=== PATIENT | male | born 1950 | race Caucasian/White ===

== ENCOUNTER 2016-08-02 03:57 | Emergency (ER) | payer BC ==
[2011-11-15 07:44] VITALS: BMI 26.0
[2016-08-02 04:33] LABS: BASOPHILS 0.3 % (0.0-2.0); EOSINOPHILS 2.6 % (0-7); HEMATOCRIT 41.1 % (42.0-54.0); HEMOGLOBIN 13.7 g/dL (13.5-17.5); IMMATURE GRANULOCYTES 0.4 % (0-5); MCH 30.9 pg (26.0-34.0); MCHC 33.3 g/dL (31.0-37.0); MCV 92.8 fL (80.0-100.0); MEAN PLATELET VOLUME 9.1 fL (7.4-10.4); MONOCYTES 9.5 % (2-11); NEUTROPHILS 52.2 % (40-80); PLATELET COUNT 261 10x3/uL (130-400); RBC 4.43 10x6/uL (4.20-6.10); RDW 12.7 % (11.5-14.5); WBC 7.6 10x3/uL (4.8-10.8)
[2016-08-02 04:51] LABS: ALBUMIN 3.3 g/dL (3.4-5.0); ALKALINE PHOSPHATASE 86 U/L (46-116); ALT (SGPT) 18 U/L (10-68); BILIRUBIN - TOTAL 0.25 mg/dL (0.2-1.3); CALC OSMOLALITY 281 mosm/kg (275-300); CALCIUM 8.7 mg/dL (8.5-10.1); CARBON DIOXIDE 27.8 mmol/L (21.0-32.0); CHLORIDE - SERUM 105 mmol/L (98-107); GLUCOSE 118 mg/dL (74-106); POTASSIUM - SERUM 4.4 mmol/L (3.5-5.1); PROTEIN - SERUM 6.4 g/dL (6.4-8.2); SODIUM 139 mmol/L (136-145); UREA NITROGEN 21 mg/dL (7-18); eGFR NON AFRICAN AMERICAN 80 mL/min (90-120)
[2016-08-02 05:00] LABS: CHOL - HDL RATIO 4.9 ratio (2.3-4.9); CHOLESTEROL, TOTAL 176 mg/dL (0-200); CKMB 0.7 U/L (0.0-3.6); CREATINE KINASE 52 UL (21-232); HDL CHOLESTEROL 36 mg/dL (32-96); LDL CHOLESTEROL 99 mg/dL (0-100); LDL-HDL RATIO 2.8 ratio (1.5-3.5); TRIGLYCERIDE 207 mg/dL (30-200)
[2016-08-02 05:02] LABS: TROPONIN-I < 0.017 ng/mL (0.000-0.060)
[2016-09-12 12:00] VITALS: BMI 25.8
== END 2016-08-02 05:35 | disposition home or self-care (01) ==
LOC: D.ER 03:57
PROVIDERS: Emergency Medicine
DX: I10 Essential (primary) hypertension (principal); F17.200 Nicotine dependence, unspecified, uncomplicated; R00.1 Bradycardia, unspecified

== ENCOUNTER → 2016-08-05 08:23 | Outpatient (CLI) | payer BC ==
[2011-11-15 07:44] VITALS: BMI 26.0
[~2016-08-05 08:23] MED LIST: ASPIRIN81 MG PO; BENICAR HCT 20-1 TA1 PO; NORVASC5 MG PO; PLAVIX75 MG PO; SYMBICORT 16010.2 GM INH
== END | disposition home or self-care (01) ==
LOC: D.RT 08:23
DX: R06.02 Shortness of breath (principal)

== ENCOUNTER 2016-09-12 08:35 | Outpatient (CLI) | payer BC ==
[~2016-09-12] VITALS: Ht 167.6 cm; Wt 72.7 kg
--- NOTE | ~2016-09-12 | HEMODYNAMI ---
PATIENT:DANILO WU MEDICAL RECORD: [id number] : 54 LOCATION:[facility] [address] [facility]# [id number] ADMISSION DATE: 09/12/16 Generatedon:09/13/201611:27 Patient name: DANILO WU Patient #: [id number] : 1950 Date of study: 09/13/2016 Page: Of Hemodynamic Procedure Report Patient Data Patient Demographics Procedure consent was obtained First Name: DANILO Gender: Male Last Name: BRYCE : 1950 Middle Initial: T Age: 65 year(s) Patient #: [id number] Race: Unknown SSN: [id number] Additional ID: [id number] Contact details Address: [address] [place] [address] ROAD State: [place] City: [place] Zip code: [address] Past Medical History Allergies: No known allergies Admission Admission Data Admission Date: 09/12/2016 Admission Time: 8:35 Arrival Date: 09/12/2016 Arrival Time: 0:00 Admit Source: Other Insurance Payor: Private Room #: [id number] health insurance Height (in.): 68 BSA: 1.87 (m2) Height (cm.): 172.72 BMI: 24.78 (kg/m2) Weight (lbs.): 163 Weight (kg.): 73.94 Lab Results Lab Result Date: 09/12/2016 Lab Result Time: 0:00 Biochemistry Name Units Result Min Max BUN mg/dl 21 --(----)-* 7 18 Creatinine mg/dl 1 --(--*-)-- 0.6 1.3 CBC Name Units Result Min Max Hemoglobin g/dl 13.9 --(*---)-- 13.5 17.5 Procedure Procedure Types Cath Procedure PCI Procedure Coronary Stent Initial Miscellaneous Procedures Moderate Sedation up to 30 minutes Procedure Description Procedure Date Procedure Date: 09/13/2016 Procedure Start Time: 11:12 Procedure End Time: 11:24 Procedure Staff Name Function Nael Pryor MD Performing Physician Francesca Vazquez RT Scrub Syd Scott RN Nurse Adolfo Bernardo RT Monitor Procedure Data Cath Procedure Fluoroscopy Diagnostic fluoroscopy Total fluoroscopy Time: 3.7 time: 3.7 min min Diagnostic fluoroscopy Total fluoroscopy dose: 291 dose: 291 mGy mGy Contrast Material Contrast Material Type Amount (ml) Isovue 300 49 Entry Location Entry Primary Successful Side Size Upsize Upsize Entry Closure Succes sful Closure Location (Fr) 1 (Fr) 2 (Fr) Remarks Device Remarks Femoral Right 6 Fr Exoseal artery Short Estimated blood loss: 10 ml Procedure Complications No complications Procedure Medications Medication Administration Route Dosage Oxygen NC 2 l/min Heparin Flush Bag added to field 2 bags (1000units/500ml NS) 0.9% NaCl I.V. 100 ml/hr Fentanyl I.V. 50 mcg Versed I.V. 1 mg Fentanyl I.V. 50 mcg Versed I.V. 1 mg Heparin Bolus I.V. 4000 units Hemodynamics Rest BSA: 1.87 (m2) HGB: 13.9 (g/dl) O2 Consumption: Estimated: 206.76 (ml/min) O2 Co nsumption indexed: Estimated:110.57 (ml/min/m) Heart Rate: 53 (bpm) Snapshots Pre Cath Intra NCS Post Cath Vital Signs Time Heart Resp SPO2 NIBP (mmHg) Rhythm Pain Sedation Rate (ipm) (%) Status Level (bpm) 10:58:50 47 17 98 142/73(108) NSR 0 (11) 10(A) , No pain 11:03:49 52 17 99 138/67(111) NSR 0 (11) 10(A) , No pain 11:08:05 46 17 98 148/63(137) NSR 0 (11) 10(A) , No pain 11:12:25 47 18 97 120/60(86) NSR 0 (11) 9(A) , No pain 11:16:33 52 17 98 117/65(85) NSR 0 (11) 9(A) , No pain 11:20:43 59 19 98 121/61(82) NSR 0 (11) 9(A) , No pain 11:24:53 59 19 98 118/64(84) NSR 0 (11) 9(A) , No pain 11:26:35 63 18 98 113/59(91) NSR 0 (11) 9(A) , No pain Medications Time Medication Route Dose Verified Delivered Reason Notes Effectiveness by by 11:05:36 Oxygen NC 2 Syd Syd Per physician l/min Tyler Scott RN RN 11:05:47 Heparin Flush added 2 Syd Syd used for Bag to bags Tyler Scott RN procedure (1000units/500ml field RN NS) 11:05:57 0.9% NaCl I.V. 100 Syd Syd Per physician ml/hr Tyler Scott RN RN 11:06:05 Fentanyl I.V. 50 Syd Syd for sedation mcg Tyler Scott RN RN 11:06:12 Versed I.V. 1 mg Syd Syd for sedation Tyler Scott RN RN 11:10:39 Fentanyl I.V. 50 Syd Syd for sedation mcg Tyler Scott RN RN 11:10:43 Versed I.V. 1 mg Syd Syd for sedation Tyler Scott RN RN 11:15:54 Heparin Bolus I.V. 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 Start room use. 10:42:18 Time tracking: Regular hours 10:42:22 Plan of Care:Hemodynamics will remain stable., Cardiac rhythm will remain stable., Comfort level will be maintained., Respiratory function will remain adequate., Patient/ family verbilizes understanding of procedure., Procedure tolerated without complication., Recovers from procedure without complications.. 10:52:28 Patient received from PCU to [facility] 2 Alert and oriented. Tansferred to table in Supine position. 10:52:29 Warm blankets applied, and arline hugger turned on for patient comfort. 10:52:29 Correct patient and procedure confirmed by team. 10:52:30 ECG and BP/O2 sat monitors applied to patient. 10:52:31 Signed procedure consent form obtained from patient. 10:57:36 Vital chart was started 10:59:46 Baseline sample Acquired. 10:59:54 Rhythm: sinus rhythm 11:00:27 H&P Date Dictated: 08/22/2016 Within 30 days and on chart.. 11:00:28 Pre-procedure instructions explained to patient. 11:00:28 Pre-op teaching completed and patient verbalized understanding. 11:00:31 Family in patients room. 11:00:32 Patient NPO since Midnight. 11:00:39 Patient allergic to No known allergies 11:00:40 Is the patient allergic to Iodine/contrast media? No. 11:00:41 Is patient on blood thinner?Yes 11:00:44 ACC The patient was administered the following blood thiners within the last 24 hours: ACCPlavix 11:00:47 Patient diabetic? No. 11:00:52 Previous problem with sedation/anesthesia? No ? 11:00:53 Snore? Yes 11:00:55 Sleep apnea? No 11:00:55 Deviated septum? No 11::00 Opens mouth fully? Yes 11:01:01 Sticks out tongue? Yes 11:01:04 Airway obstruction? Yes asthma 11:01:11 Dentures? Yes in tight 11:01:14 Pre procedure: right dorsailis pedis pulse 2+ Normal; easily identifiable; not easily obliterated 11:01:15 Patient pain scale 0/10 ?. 11:01:22 IV patent on arrival in left hand with 0.9% NaCl at [facility]. 11:01:30 Lab results completed and on chart. 11:01:32 Right groin area was prepped with chlora-prep and draped in sterile fashion 11:01:32 Alarms reviewed by R. N. 11:01:33 Sharps counted by scrub and verified by R.N. 11:01:35 Use device set Femoral PCI 11:01:36 Tegaderm 4 x 4 opened to sterile field. 11:01:37 Acist Manifold opened to sterile field. 11:01:38 Acist Syringe opened to sterile field. 11:01:38 Acist Hand Control opened to sterile field. 11:01:39 Bag Decanter opened to sterile field. 11:01:39 Medline Cath Pack opened to sterile field. 11:01:40 Terumo 6Fr [place] Sheath opened to sterile field. 11:01:40 St Mohsen 260cm J .035 wire opened to sterile field. 11:01:41 Merit BasixCompak Inflation Kit opened to sterile field. 11:01:55 Talley Whisper J 300cm 0.014 guide wire opened to sterile field. 11:04:32 Physician arrived 11::33 --------ALL STOP TIME OUT------ 11::33 Final Timeout: patient, procedure, and site verified with staff and physician. All members of the team are in agreement. 11:04:35 Right groin site verified by team. 11:04:37 Physical assessment completed. ASA score P 2 - A patient with mild systemic disease as per Nael Pryor MD. 11:04:40 Sedation plan: IV Moderate Sedation Versed, Fentanyl 11:05:36 Oxygen 2 l/min NC was administered by Syd Scott RN; Per physician; 11:05:47 Heparin Flush Bag (1000units/500ml NS) 2 bags added to field was administered by Syd Scott RN; used for procedure; 11:05:57 0.9% NaCl 100 ml/hr I.V. was administered by Syd Scott RN; Per physician; 11:06:05 Fentanyl 50 mcg I.V. was administered by Syd Scott RN; for sedation; 11:06:12 Versed 1 mg I.V. was administered by Syd Scott RN; for sedation; 11:08:03 Cordis 6FR XBLAD 3.5 guide catheter opened to sterile field. 11:10:39 Fentanyl 50 mcg I.V. was administered by Syd Scott RN; for sedation; 11:10:43 Versed 1 mg I.V. was administered by Syd Scott RN; for sedation; 11:11:39 Zero performed for pressure channel P1 11:12:51 Procedure started. 11:12:51 Full Disclosure recording started 11:12:55 Local anesthetic to right femoral artery with Lidocaine 2% by Nael Pryor MD.INITIAL ACCESS ONLY 11:13:06 A 6 Fr Short sheath was inserted into the Right Femoral artery 11:14:04 6 Fr xblad 3.5 guide catheter was inserted over the wire 11:15:54 Heparin Bolus 4000 units I.V. was administered by Syd Scott RN; for anticoagulation; 11:18:58 [place] Sci Choice PT Extra Support J 300cm .014 gu opened to sterile field. 11:19:01 PT extra support wire advanced. 11:19:20 Wire advanced across lesion. 11:20:19 Inflation Number: 1 A Medtronic Integrity 2.75 X 26 stent was prepped and advanced across the Mid LAD. The stent was deployed at 11 SANAZ for 0:10 (min:sec). 11:20:43 Stent catheter was removed intact over wire. 11:22:25 Inflation Number: 2 A Medtronic Integrity 3.0 X 15 stent was prepped and advanced across the Mid LAD. The stent was deployed at 11 SANAZ for 0:10 (min:sec). 11:23:16 Cordis 6Fr Exoseal opened to sterile field. 11:23:19 Stent catheter was removed intact over wire. 11:23:19 Wire removed. 11:23:20 Guide catheter removed. 11:23:26 Sheath removed intact; hemostasis achieved with Exoseal to the Right Femoral artery. 11:23:28 Procedure ended.(Physican Out) 11:23:37 Fluoroscopy time 03.70 minutes. 11:23:41 Flurop Dose total: 291 11:23:41 Fluoroscopy dose: 291 mGy 11:23:44 Contrast amount:Isovue 300 49ml. 11:23:46 Sharps counted by scrub and verified by R.N. 11:23:47 Insertion/operative site no bleeding no hematoma. 11:23:50 Post-op/insertion site Right Femoral artery dressed using a 4 x 4 and Tegaderm. 11:23:52 Post right femoral artery:stable, unchanged 11:23:54 Post Procedure Pulses reassessed and unchanged 11:23:56 Post-procedure physical assessment completed. ASA score P 2 - A patient with mild systemic disease as per Nael Pryor MD. 11:23:58 Post procedure rhythm: unchanged. 11:24:00 Estimated blood loss: 10 ml 11:24:01 Post procedure instruction explained to patient.Patient verbalizes understanding. 11:24:01 Patient needs reinforcement of post procedure teaching. 11:24:16 Procedure type changed to Cath procedure, PCI procedure, Coronary Stent Initial, Miscellaneous Procedures, Moderate Sedation up to 30 minutes 11:24:44 Procedure and supply charges have been captured, reviewed, submitted and are correct. 11:24:47 Procedure Complication : No complications 11:24:49 Vital chart was stopped 11:24:49 See physician's report for complete and final results. 11:24:51 Report given to PCU. 11:24:55 Patient transfered to PCU with Stretcher. 11:24:57 Procedure ended. 11:24:57 Full Disclosure recording stopped 11:25:15 End room use (Document Last) Intervention Summary Intervention Notes Time ActionType Lesion and Equipment Action# Pressure Duration Attributes Used 11:20:19 Place stent Mid LAD Medtronic 1 11 00:10 Integrity 2.75 X 26 stent 11:22:25 Place stent Mid LAD Medtronic 2 11 00:10 Integrity 3.0 X 15 stent Device Usage Item Name Manufacture Quantity Catalog Number Hospital Part Current Minim al Lot# / Charge Number Stock Stock Serial# Code Tegaderm 4 3M 1 [id number] [id number] [id number] 5 x 4 Acist Acist 1 36299 158477 797568 184681 5 Manifold Medical Systems Inc Acist Acist 1 52694 796987 802999 673653 20 Syringe Medical Systems Inc Acist Hand Acist 1 86558 190831 119463 290689 5 Ember[employer] Inc. Medical Systems K2 Energy Bag Microtek 1 2002S 745624 19399 556235 5 [employer]. Medline Cardinal 1 [id number] 919665 11674 952088 5 10X10 Room Terumo 6Fr Terumo 1 [id number] 863522 711034 800782 [address] Mohsen 1 039178 086304 247068 363951 30 260cm J .035 wire Merit Merit 1 [id number] 581646 735599 936260 15 BasixCompak Medical Inflation Kit Talley Talley 1 [id number] 483192 068621 248054 5 Whisper J Vascular 300cm 0.014 guide wire Cordis 6FR Cardinal 1 [id number] 484309 105326 183340 10 XBLAD 3.5 Health guide catheter [place] Sci [place] 1 [id number] 997078 898392 638893 5 Choice PT Scientific Extra Support J 300cm .014 gu Medtronic Medtronic 1 [id number] 053725 482154 805492 7 [id number] Integrity 2.75 X 26 stent Medtronic Medtronic 1 [id number] 936041 798250 621487 3 [id number] Integrity 3.0 X 15 stent Cordis 6Fr Cardinal 1 [id number] 732705 575177 023028 10 GID Group Signature Audit [place] Stage Time Signature Unsigned Intra-Procedure 09/13/2016 Adolfo Bernardo 11:27:12 AM RT(R) Signatures Monitor : Adolfo Bernardo RT Signature : Date : Time : [place] [id number] [facility] [place] [address]
--- NOTE | ~2016-09-12 | HEMODYNAMI ---
PATIENT:DANILO WU MEDICAL RECORD: [id number] : 54 LOCATION:DBC ADMISSION DATE: 09/12/16 Generatedon:09/12/201610:44 Patient name: DANILO WU Patient #: [id number] : 1950 Date of study: 09/12/2016 Page: Of Hemodynamic Procedure Report Patient Data Patient Demographics Procedure consent was obtained First Name: DANILO Gender: Male Last Name: BRYCE : 1950 Middle Initial: T Age: 65 year(s) Patient #: [id number] Race: Unknown SSN: [id number] Additional ID: [id number] Contact details Address: [address] [place] [address] ROAD State: [place] City: [place] Zip code: [address] Past Medical History Allergies: No known allergies Admission Admission Data Admission Date: 09/12/2016 Admission Time: 8:35 Arrival Date: 09/12/2016 Arrival Time: 0:00 Admit Source: Other Insurance Payor: Private health insurance Height (in.): 68 BSA: 1.87 (m2) Height (cm.): 172.72 BMI: 24.78 (kg/m2) Weight (lbs.): 163 Weight (kg.): 73.94 Lab Results Lab Result Date: 09/12/2016 Lab Result Time: 0:00 Biochemistry Name Units Result Min Max BUN mg/dl 21 --(----)-* 7 18 Creatinine mg/dl 1 --(--*-)-- 0.6 1.3 CBC Name Units Result Min Max Hemoglobin g/dl 13.9 --(*---)-- 13.5 17.5 Procedure Procedure Types Cath Procedure Diagnostic Procedure LHC LH w/Coronaries PCI Procedure Coronary Stent Initial Miscellaneous Procedures Moderate Sedation up to 15 minutes Procedure Description Procedure Date Procedure Date: 09/12/2016 Procedure Start Time: 10:26 Procedure Staff Name Function Marian BANUELOS Scrub Jean Coleman RN Nurse Nael Pryor MD Performing Physician Kacy Granger RT Monitor Procedure Data Cath Procedure Fluoroscopy Diagnostic fluoroscopy Total fluoroscopy Time: 3.3 time: 3.3 min min Diagnostic fluoroscopy Total fluoroscopy dose: 345 dose: 345 mGy mGy Contrast Material Contrast Material Type Amount (ml) Isovue 300 80 Entry Location Entry Primary Successful Side Size Upsize Upsize Entry Closure Coats ccessful Closure Location (Fr) 1 (Fr) 2 (Fr) Remarks Device Remarks Radial Right 6 Fr Mechanical tr artery Short Compression Estimated blood loss: 10 ml Diagnostic catheters Device Type Used For End Catheter Placement Terumo 5Fr Houston 110cm Procedure catheter Procedure Complications No complications Procedure Medications Medication Administration Route Dosage Oxygen NC 2 l/min Lidocaine 2% added to field 20 Heparin Flush Bag added to field 2 bags (1000units/500ml NS) 0.9% NaCl I.V. 100 ml/hr Versed I.V. 1 mg Fentanyl I.V. 50 mcg Radial Cocktail I.A. 1 syringe (Verapomil 2mg/Nitro 400mcg/Heparin 1500units) Heparin Bolus I.V. 4000 units Versed I.V. 0.5 mg Fentanyl I.V. 25 mcg Hemodynamics Rest BSA: 1.87 (m2) HGB: 13.9 (g/dl) O2 Consumption: Estimated: 203.23 (ml/min) O2 Co nsumption indexed: Estimated:108.68 (ml/min/m) Heart Rate: 48 (bpm) Snapshots Pre Cath Intra NCS Post Cath Vital Signs Time Heart Resp SPO2 etCO2 [id number] NIBP Rhythm Pain Sedation Rate (ipm) (%) (mmHg) (mmHg) (mmHg) Status Level (bpm) 10:06:11 56 16 98 0 0 133/68(99) SB 0 (11) 10(A) , No pain 10:10:34 53 17 99 0 0 147/45(57) SB 0 (11) 10(A) , No pain 10:15:43 51 16 100 0 0 137/64(89) SB 0 (11) 10(A) , No pain 10:21:02 47 20 100 0 0 128/67(95) SB 0 (11) 10(A) , No pain 10:25:14 58 16 98 0 0 119/68(93) SB 0 (11) 10(A) , No pain 10:29:24 66 16 98 0 0 106/63(76) NSR 0 (11) 9(A) , No pain 10:33:32 64 16 98 0 0 117/58(88) NSR 0 (11) 9(A) , No pain 10:37:44 64 15 98 0 0 111/55(80) NSR 0 (11) 9(A) , No pain Medications Time Medication Route Dose Verified Delivered Reason Note s Effectiveness by by 10:03:52 Oxygen NC 2 l/min Nael Buffie used for Konstantin Coleman RN procedure 10:03:58 Lidocaine 2% added 20ml Naeljonatan Nayak for local to vial Konstantin Pryor MD anesthetic field 10:04:04 Heparin Flush added 2 bags Nael Nayak used for Bag to Konstantin Pryor MD procedure (1000units/500ml field NS) 10:04:12 0.9% NaCl I.V. 100 Nael Pena Per physician ml/hr Konstantin Coleman RN 10:26:03 Versed I.V. 1 mg Nael Pena for sedation Konstantin Coleamn RN 10:26:08 Fentanyl I.V. 50 mcg Nael Pena for sedation Konstantin Coleman RN 10:28:05 Radial Cocktail I.A. 1 Nael Nayak for (Verapomil syringe Konstantin Pryor MD vasodilation 2mg/Nitro 400mcg/Hepari 10:30:53 Heparin Bolus I.V. 4000 Nael Pena for units Konstantin Cloeman RN anticoagulation 10:32:13 Versed I.V. 0.5 mg Nael Pena for sedation Konstantin Coleman RN 10:32:18 Fentanyl I.V. 25 mcg Nael Pena for sedation Konstantin Coleman RN Procedure Log Time Note 9:54:26 Patient Height : 68 cm 9:54:31 Patient Weight : 163 kg 9:54:32 Admit Source: Other 9:54:33 Insurance Payor : Private health insurance 9:54:36 Arrival Date: 09/12/2016 12:00:00 AM 9:55:03 Procedure type changed to Cath procedure, Diagnostic procedure, LHC, LHC w/Coronaries, PCI procedure, Coronary Stent Initial, Miscellaneous Procedures, Moderate Sedation up to 15 minutes 9:55:06 Diagnostic Cath Status : Elective 9:55:43 Jean Coleman RN sent for patient. Start room use. 9:55:44 Time tracking: Regular hours 9:55:50 Plan of Care:Hemodynamics will remain stable., Cardiac rhythm will remain stable., Comfort level will be maintained., Respiratory function will remain adequate., Patient/ family verbilizes understanding of procedure., Procedure tolerated without complication., Recovers from procedure without complications.. 10:03:52 Oxygen 2 l/min NC was administered by Jean Coleman RN; used for procedure; 10:03:58 Lidocaine 2% 20ml vial added to field was administered by Nael Pryor MD; for local anesthetic; 10:04:04 Heparin Flush Bag (1000units/500ml NS) 2 bags added to field was administered by Nael Pryor MD; used for procedure; 10:04:12 0.9% NaCl 100 ml/hr I.V. was administered by Jean Coleman RN; Per physician; 10:04:54 Vital chart was started 10:05:35 Patient received from Pre/Post Procedure Room to CCL 1 Alert and oriented. Tansferred to table in Supine position. 10:05:36 Correct patient and procedure confirmed by team. 10:05:36 Warm blankets applied, and arline hugger turned on for patient comfort. 10:05:39 Signed procedure consent form obtained from patient. 10:05:40 ECG and BP/O2 sat monitors applied to patient. 10:05:41 Baseline sample Acquired. 10:05:45 Rhythm: sinus rhythm 10:05:47 Full Disclosure recording started 10:05:59 H&P Date Dictated: 08/22/2016 Within 30 days and on chart., H&P Addendum completed by physician on day of procedure. (MUST COMPLETE FOR ALL OUTPATIENTS). 10:06:01 Pre-procedure instructions explained to patient. 10:06:04 Family in waiting room. 10:06:05 Patient NPO since Midnight. 10:06:59 Patient allergic to No known allergies 10:07:03 Is the patient allergic to Iodine/contrast media? No. 10:07:07 Is patient on blood thinner?Yes 10:07:12 ACC The patient was administered the following blood thiners within the last 24 hours: ACCPlavix 10:07:20 Patient diabetic? No. 10:07:27 Snore? Yes 10:07:29 Sleep apnea? No 10:07:39 Patient pain scale 0/10 ?. 10:07:47 IV patent on arrival in left hand with 0.9% NaCl at [facility]. 10:08:20 Right Radial & Right Groin area was prepped with chlora-prep and draped in sterile fashion 10:08:21 Alarms reviewed by R. N. 10:08:22 Sharps counted by scrub and verified by R.N. 10:08:23 Physician paged 10:12:12 Lab Result : Hemoglobin 13.9 g/dl 10:12:12 Lab Result : Creatinine 1 mg/dl 10:12:12 Lab Result : BUN 21 mg/dl 10:17:59 Zero performed for pressure channel P1 10:18:05 Zero performed for pressure channel P1 10:18:22 Lab results completed and on chart. 10:22:40 Physician arrived 10:25:54 Final Timeout: patient, procedure, and site verified with staff and physician. All members of the team are in agreement. 10:25:54 --------ALL STOP TIME OUT------ 10:25:56 Right Radial & Right Groin site verified by team. 10:26:00 Physical assessment completed. ASA score P 2 - A patient with mild systemic disease as per Nael Pryor MD. 10:26:03 Versed 1 mg I.V. was administered by Jean Coleman RN; for sedation; 10:26:08 Fentanyl 50 mcg I.V. was administered by Jean Coleman RN; for sedation; 10:26:48 Procedure started. 10:26:59 Local anesthetic to right radial artery with Lidocaine 2% by Nael Pryor MD.INITIAL ACCESS ONLY 10:27:06 Bag Decanter opened to sterile field. 10:27:06 Acist Syringe opened to sterile field. 10:27:07 Medline Cath Pack opened to sterile field. 10:27:29 Use device set Radial Dx 10:27:46 Terumo 6Fr Slender Glidesheath opened to sterile field. 10:27:48 St Mohsen 260cm J .035 wire opened to sterile field. 10:27:52 Acist Hand Control opened to sterile field. 10:27:53 Tegaderm 4 x 4 opened to sterile field. 10:27:53 Acist Manifold opened to sterile field. 10:27:54 MBrace Wrist Support opened to sterile field. 10:28:05 Radial Cocktail (Verapomil 2mg/Nitro 400mcg/Heparin 1500units) 1 syringe I.A. was administered by Nael Pryor MD; for vasodilation; 10:28:29 A Terumo 5Fr [place] 110cm catheter was advanced over the wire and used for Procedure. 10:28:47 A 6 Fr Short sheath was inserted into the Right Radial artery 10:29:04 J wire advanced. 10::54 LV gram done using AGRAWAL 10:30:11 EF : 55 % 10:30:19 LCA angiography performed. 10:30:53 Heparin Bolus 4000 units I.V. was administered by Jean Coleman RN; for anticoagulation; 10:32:09 RCA angiography performed. 10:32:13 Versed 0.5 mg I.V. was administered by Jean Coleman RN; for sedation; 10:32:16 Catheter removed. 10:32:18 Fentanyl 25 mcg I.V. was administered by Jean Coleman RN; for sedation; 10:32:19 Tagged BasixCompak Inflation Kit opened to sterile field. 10:32:20 Talley Whisper J 300cm 0.014 guide wire opened to sterile field. 10:33:07 Medtronic Launcher 6Fr AR 2.0 guide catheter opened to sterile field. 10:33:48 Proceeding to intervention. 10:34:23 6 Fr AR 2 guide catheter was inserted over the wire 10:34:27 whis wire advanced. 10:35:02 Inflation Number: 1 A Medtronic Integrity 3.0 X 18 stent was prepped and advanced across the Mid RCA. The stent was deployed at 13 SANAZ for 0:10 (min:sec). 10:35:59 Terumo TR Band Standard opened to sterile field. 10:36:34 Stent catheter was removed intact over wire. 10:36:35 Wire removed. 10:36:36 Guide catheter removed. 10:36:57 Sheath removed intact; hemostasis achieved with Mechanical Compression to the Right Radial artery. 10:37:00 Procedure ended.(Physican Out) 10:37:17 Fluoroscopy time 03.30 minutes. 10:37:31 Fluoroscopy dose: 345 mGy 10:37:31 Flurop Dose total: 345 10:37:36 Contrast amount:Isovue 300 80ml. 10:37:38 Sharps counted by scrub and verified by R.N. 10:37:41 TR band inflated with 10cc of air. 10:37:44 Insertion/operative site no bleeding no hematoma. 10:37:46 Post Procedure Pulses reassessed and unchanged 10:37:51 Estimated blood loss: 10 ml 10:37:54 Post procedure instruction explained to patient.Patient verbalizes understanding. 10:38:03 Procedure and supply charges have been captured, reviewed, submitted and are correct. 10:39:11 Full Disclosure recording stopped 10:40:18 Procedure Complication : No complications 10:40:25 See physician's report for complete and final results. 10:40:32 Report given to Med II. 10:40:39 Patient transfered to Med II with Bed. 10:40:45 End room use (Document Last) Intervention Summary Intervention Notes Time ActionType Lesion and Equipment Action# Pressure Duration Attributes Used 10:35:02 Place stent Mid RCA Medtronic 1 13 00:10 Integrity 3.0 X 18 stent Device Usage Item Name Manufacture Quantity Catalog Hospital Part Current Minimal Lot# / Number Charge Number Stock Stock Serial# Code Acist Acist 1 24581 675228 035107 862342 20 Syringe Medical Systems Inc Bag Microtek 1 2002S 670372 50155 363705 5 Decanter Medical Inc. Medline Cardinal 1 [id number] 754756 83811 218861 5 Academic Earth Terumo 6Fr Terumo 1 [id number] 743490 127297 172406 [address] St Mohsen 1 380302 015148 198651 926562 30 260cm J .035 wire Acist Hand Acist 1 64597 119579 576561 045325 5 Control Medical Systems Inc Acist Acist 1 40376 428342 664476 070189 5 Manifold Medical Systems Inc Tegaderm 4 3M 1 1626W 882569 737244 391189 5 x 4 MBrace Advanced 1 140-0250-00 739221 30394 949869 5 Wrist Vascular Support Dynamics Terumo 5Fr Terumo 1 45-0986 503317 946079 858014 5 [place] 110cm catheter Merit Merit 1 [id number] 332697 635545 862297 15 [facility] Medical Inflation Kit Talley Talley 1 [id number] 454591 015015 851085 5 Whisper J Vascular 300cm 0.014 guide wire Medtronic Medtronic 1 [id number] 277965 00795 151122 1 Launcher 6Fr AR 2.0 guide catheter Medtronic Medtronic 1 [id number] 981701 096187 375811 0 [id number] Integrity 3.0 X 18 stent Terumo TR Terumo 1 [id number] 114223 730085 501568 40 Band Standard Signature Audit Lambert Stage Time Signature Unsigned Intra-Procedure 09/12/2016 Kacy Granger RT(R) 10:41:03 AM RT(R) 09/12/2016 10:43:48 AM Intra-Procedure 09/12/2016 Kacy Granger 10:44:25 AM RT(R) Signatures Monitor : Kacy Granger Signature : RT Date : Time : [facility] [address] [facility] [place] [address]
[2016-09-12] MEDS ORDERED: PLAVIX75 MG PO (08:58)
[2016-09-12] MEDS ORDERED: NORVASC5 MG PO (08:58)
[2016-09-12] MEDS ORDERED: SYMBICORT 16010.2 GM INH (08:59)
[2016-09-12] MEDS ORDERED: BENICAR HCT 20-1 TA1 PO (09:00)
[2016-09-12 09:05] VITALS: BP 130/68; BMI 25.8
[2016-09-12 09:21] LABS: BASOPHILS 0.3 % (0.0-2.0); EOSINOPHILS 1.2 % (0-7); HEMATOCRIT 40.8 % (42.0-54.0); HEMOGLOBIN 13.9 g/dL (13.5-17.5); IMMATURE GRANULOCYTES 0.3 % (0-5); LYMPHOCYTES 29.5 % (15-50); MCHC 34.1 g/dL (31.0-37.0); MCV 91.1 fL (80.0-100.0); MEAN PLATELET VOLUME 9.1 fL (7.4-10.4); NEUTROPHILS 61.7 % (40-80); PLATELET COUNT 298 10x3/uL (130-400); RBC 4.48 10x6/uL (4.20-6.10); WBC 7.6 10x3/uL (4.8-10.8)
[2016-09-12 09:38] LABS: ANION GAP 16.4 mmol/L (8-16); CREATININE - SERUM 1.2 mg/dL (0.6-1.3); POTASSIUM - SERUM 4.4 mmol/L (3.5-5.1)
--- NOTE | 2016-09-12 11:00 | NUR ---
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
[2016-09-12 12:00] VITALS: BP 125/62; Ht 167.6 cm; Wt 72.7 kg
[2016-09-12 16:15] VITALS: BP 140/78
--- NOTE | 2016-09-12 19:15 | NUR ---
INITIAL ROUNDS MADE. PT SITTING UP IN BED WATCHING TV. DENIES NEEDS OR C/O AT THIS TIME. RIGHT WRIST STABLE. WILL CONT TO MONITOR.
[2016-09-12 21:37] VITALS: BP 145/68
--- NOTE | 2016-09-12 23:24 | NUR ---
TUBE TELLER AT BEDSIDE FOR VS. NEEDS ADDRESSED AT THIS TIME. CALL LIGHT IN REACH. WILL CONT TO MONITOR.
[2016-09-13 05:54] VITALS: BP 125/53
[2016-09-13 06:02] VITALS: BP 113/57
[2016-09-13 08:00] VITALS: BP 128/58
--- NOTE | 2016-09-13 09:45 | NUR ---
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
[2016-09-13] MEDS ORDERED: ASPIRIN81 MG PO (11:56)
[2016-09-13 12:00] VITALS: BP 111/57
[2016-09-13 16:00] VITALS: BP 118/58
--- NOTE | 2016-09-13 17:15 | NUR ---
REVIEWED DISCHARGE INSTRUCTIONS WITH PT AND STATE UNDERSTANDING COPY GIVEN DCD SALINE LOCK DCD WITH CATHETER INTACT NO REDNESS OR EDEMA NOTED AT SITE
--- NOTE | 2016-09-13 17:30 | NUR ---
PT DISCHARGED HOME IN STABLE CONDITION WITH ALL PERSONAL BELONGINGS LEFT UNIT VIA W/C
--- NOTE | 2016-09-23 10:19 | DS ---
PATIENT:DANILO KRAFT :54 MEDICAL RECORD: [id number] DISCHARGE SUMMARY ADMISSION DATE: 09/12/16 DISCHARGE DATE: 09/13/16 DISCHARGE DIAGNOSES: 1. Angina. 2. Coronary artery disease. 3. Percutaneous transluminal coronary angioplasty stent left anterior descending and right coronary artery this admission. 4. Hypertension. 5. Hyperlipidemia. HOSPITAL COURSE: Mr. Kraft presents with anginal symptomatology, found to have 2-vessel coronary disease of the LAD and RCA, underwent successful PTCA stent of above territories, had an uneventful postop course. He was discharged home with addition of aspirin and Plavix to his medical regimen and follow up with [facility] in 1 month. TRANSINT:[id number] Voice Confirmation ID: [id number] DOCUMENT ID: [id number] LEATHA KHAN MD at 1019 CC: [id number] DICTATION DATE: 09/13/16 1125 PICTURE HANGER: 09/13/16 1228 DEP CLI 09/13/[address] [address]
--- NOTE | 2016-09-23 10:19 | OP ---
PATIENT NAME: DANILO WU MEDICAL RECORD: [id number] :54 LOCATION:D.CAT ADMISSION DATE: SURGEON: LEATHA KHAN MD DATE OF OPERATION: 09/12/2016 PROCEDURES: 1. PTCA stent RCA. 2. Left heart catheterization. 3. Selective coronary angiography. 4. Left ventriculogram. INDICATION: Angina and coronary artery disease. PROCEDURE IN DETAIL: After informed consent was obtained and after detailed explanation of risks, benefits as well as alternative therapies, the patient elected to proceed with angiogram and angioplasty. The right radial area was prepped and draped in normal sterile fashion. The right radial artery was cannulated via modified Seldinger technique with placement of 6-Malay sheath. All catheters exchanged through this sheath. FINDINGS: The left ventriculogram was performed in the standard 30-degree AGRAWAL view reveals good cardiac wall motion throughout all segments. Overall ejection fraction estimated 60%. SELECTIVE CORONARY ANGIOGRAPHY: 1. Left main showed no significant angiographic disease. 2. Left anterior descending has a 70% to 80% stenosis in the mid vessel. 3. Left circumflex shows moderate irregularities, but no flow-limiting stenosis. 4. Right coronary has 80% stenosis in the mid vessel. PTCA STENT OF THE RIGHT CORONARY: The stent used was a 3.0 x 18 mm Integrity. Result was 0% residual stenosis. OVERALL IMPRESSION: Successful percutaneous transluminal coronary angioplasty stent of the right coronary artery going from 80% initial stenosis to 0% residual. PLAN: For PTCA stent of the left anterior descending in the near future. TRANSINT:[id number] Voice Confirmation ID: [id number] DOCUMENT ID: [id number] LEATHA KHAN MD at 1019 CC: [id number] DICTATION DATE: 09/12/16 1038 RESEARCH ELECTRICIAN: 09/12/16 1228 [facility] CLI 09/13/16 [place] [address]
--- NOTE | 2016-09-23 10:19 | OP ---
PATIENT NAME: DANILO WU MEDICAL RECORD: [id number] :54 LOCATION:D.CAT ADMISSION DATE: SURGEON: LEATHA KHAN MD DATE OF OPERATION: 09/13/2016 PROCEDURES: 1. PTCA stent LAD. 2. Selective coronary angiography. INDICATION: Angina and coronary artery disease. PROCEDURE IN DETAIL: After informed consent was obtained and after detailed explanation of risks, benefits as well as alternative therapies, the patient elected to proceed with angiogram and angioplasty. The right femoral area was prepped and draped in normal sterile fashion. ____ femoral artery was cannulated via modified Seldinger technique with placement of 6-Hebrew sheath. All catheters exchanged through this sheath. FINDINGS: The left anterior descending has a long area of 70% to 75% stenosis addressed with a 2.75 x 26 and 3.0 x 15 both Integrity stents. Result was 0% residual stenosis. OVERALL IMPRESSION: Successful percutaneous transluminal coronary angioplasty stent of the left anterior descending going from a long area of 70% to 75% initial stenosis to 0% residual with evangelical of ROSENDA-3 flow. TRANSINT:[id number] Voice Confirmation ID: [id number] DOCUMENT ID: [id number] LEATHA KHAN MD at 1019 CC: [id number] DICTATION DATE: 09/13/16 1127 SUMMER NANNY: 09/13/16 1217 DEP CLI 09/13/[address] [address]
== END 2016-09-13 17:30 | disposition home or self-care (01) ==
LOC: D.M2 08:35 → D.CATH 08:35 → D.M2 10:50 → D.SDCHOLD 09-13 10:52 → D.CATH 09-13 17:30
PROVIDERS: Internal Medicine Interventional Cardiology
DX: I25.119 Atherosclerotic heart disease of native coronary artery with unspecified angina pectoris (principal); I10 Essential (primary) hypertension; E78.5 Hyperlipidemia, unspecified

== ENCOUNTER 2018-08-22 10:56 | Observation (INO) | payer MEDICARE, BC ==
[~2018-08-22] VITALS: Ht 167.6 cm; Wt 71.8 kg
[2018-08-22] MEDS ORDERED: BREO ELLIPTA 11 EACH INH (11:06)
[2018-08-22 11:11] VITALS: BP 128/74
[2018-08-22 11:23] LABS: BASOPHILS 0.1 % (0-2); EOSINOPHILS 0.8 % (0-7); HEMATOCRIT 39.9 % (42.0-54.0); HEMOGLOBIN 13.9 g/dL (13.5-17.5); IMMATURE GRANULOCYTES 0.4 % (0-5); LYMPHOCYTES 26.2 % (15-50); MCHC 34.8 g/dL (31.0-37.0); MCV 89.1 fL (80.0-100.0); MEAN PLATELET VOLUME 8.7 fL (7.4-10.4); NEUTROPHILS 66.5 % (40-80); PLATELET COUNT 297 10x3/uL (130-400); RBC 4.48 10x6/uL (4.20-6.10); RDW 12.7 % (11.5-14.5); WBC 7.3 10x3/uL (4.8-10.8)
[2018-08-22 11:36] LABS: ALBUMIN 3.7 g/dL (3.4-5.0); ALKALINE PHOSPHATASE 82 U/L (46-116); ALT (SGPT) 22 U/L (10-68); APTT 29.1 SECONDS (22.8-39.4); BILIRUBIN - TOTAL 0.43 mg/dL (0.2-1.3); CALC OSMOLALITY 272 mosm/kg (275-300); CARBON DIOXIDE 25.6 mmol/L (21.0-32.0); CHLORIDE - SERUM 100 mmol/L (98-107); CREATININE - SERUM 1.4 mg/dL (0.6-1.3); GLUCOSE 117 mg/dL (74-106); INR 0.99 (0.85-1.17); POTASSIUM - SERUM 4.7 mmol/L (3.5-5.1); PROTEIN - SERUM 7.4 g/dL (6.4-8.2); PROTIME 12.6 SECONDS (11.6-15.0); SODIUM 135 mmol/L (136-145); UREA NITROGEN 18 mg/dL (7-18); eGFR NON AFRICAN AMERICAN 54 mL/min (90-120)
[2018-08-22 11:47] LABS: CKMB 0.7 U/L (0.0-3.6); CREATINE KINASE 52 UL (21-232); MAGNESIUM - SERUM 1.6 mg/dL (1.8-2.4); TROPONIN-I < 0.017 ng/mL (0.000-0.060)
--- NOTE | 2018-08-22 12:27 | NUR ---
PT OUT OF ED AT THIS TIME FOR ORDERED CT SCAN.
[2018-08-22 13:05] VITALS: BP 165/65
[2018-08-22] MEDS ORDERED: MECLIZINE HCL25 MG PO (13:32)
--- NOTE | 2018-08-22 15:48 | NUR ---
TRANSFER FROM ER BY W/C. WALLACEINTED TO ROOM. CALL LIGHT IN REACH. WILL CONT. PLAN OF CARE.
--- NOTE | 2018-08-22 16:09 | NUR ---
PT ARRIVED FROM ER VIA WHEELCHAIR. PT IS AAO AND UP AD DAVID. RR EVEN AND UNLABORED ON RA. NS INFUSING @75ML/HR VIA R.HAND PIV ALONG WIHT 2MG MAGNESIUM RIDER. NO S/S OF DISTRESS NOTED. NO SKIN BREAKDOWN NOTED. NO CP NOTED. MED REQ, QUICKSTART, HISTORY COMPLETE. WILL NOTIFY CHARGE NURSE RN FOR NEED OF INITIAL ASSESSMENT. WILL CTM.
[2018-08-22 16:27] VITALS: BP 145/73; Ht 167.6 cm; Wt 71.8 kg
--- NOTE | 2018-08-22 16:28 | NUR ---
TELEMETRY PLACED ON PT. PT RUNNING 71 NS.
--- NOTE | 2018-08-22 16:28 | NUR ---
ORTHOSTATICS LYING-144/64 SITTING-142/60 STANDING-121/57 PT REPORTED LIGHT DIZZINESS BETWEEN LYING AND STANDING. WILL CTM.
[2018-08-22 16:59] VITALS: BP 144/64
--- NOTE | 2018-08-22 19:27 | NUR ---
AWAKE AND ALERT EAting dinner at this time. LCTA DENIES DIZZINESS AT THIS TIME. SKIN WARM AND DRY AND PULSES ARE INTACT.TELEMETRY IS SR AT THIS TIME
[2018-08-22 20:32] VITALS: BP 143/59
[2018-08-22 22:35] LABS: APPEARANCE CLEAR (CLEAR); BILIRUBIN NEGATIVE (NEGATIVE); COLOR YELLOW (YELLOW); GLUCOSE 50 mg/dL (NEGATIVE); KETONE NEGATIVE (NEGATIVE); NITRITE NEGATIVE (NEGATIVE); PROTEIN NEGATIVE (NEGATIVE); UROBILINOGEN NORMAL (NORMAL)
[2018-08-23 00:04] VITALS: BP 135/67
[2018-08-23 05:34] LABS: BASOPHILS 0.1 % (0-2); EOSINOPHILS 1.4 % (0-7); HEMATOCRIT 39.4 % (42.0-54.0); HEMOGLOBIN 13.4 g/dL (13.5-17.5); IMMATURE GRANULOCYTES 0.5 % (0-5); LYMPHOCYTES 35.8 % (15-50); MCH 30.5 pg (26.0-34.0); MCV 89.7 fL (80.0-100.0); MEAN PLATELET VOLUME 8.8 fL (7.4-10.4); MONOCYTES 7.1 % (2-11); NEUTROPHILS 55.1 % (40-80); PLATELET COUNT 277 10x3/uL (130-400); RBC 4.39 10x6/uL (4.20-6.10); RDW 12.6 % (11.5-14.5); WBC 7.9 10x3/uL (4.8-10.8)
[2018-08-23 05:58] LABS: ALBUMIN 3.2 g/dL (3.4-5.0); ANION GAP 11.3 mmol/L (8-16); BILIRUBIN - TOTAL 0.38 mg/dL (0.2-1.3); CALCIUM 8.6 mg/dL (8.5-10.1); CARBON DIOXIDE 28.4 mmol/L (21.0-32.0); CREATININE - SERUM 1.4 mg/dL (0.6-1.3); POTASSIUM - SERUM 4.7 mmol/L (3.5-5.1); PROTEIN - SERUM 6.9 g/dL (6.4-8.2)
[2018-08-23 06:13] VITALS: BP 131/66
--- NOTE | 2018-08-23 07:30 | NUR ---
RECEIVED A/A/OX4. DENIES ANY PAIN OR DISCOMFORT AND NO REQUESTS VOICED. ASSESSMENT COMPLETED. BED IN LOWEST POSITION WITH WHEELS LOCKED. SIDERAILS UP X 2 AND CALL LIGHT IN REACH. WILL CONTINUE PRESENT POC.
[2018-08-23 07:53] VITALS: BP 156/63
--- NOTE | 2018-08-23 10:24 | NUR ---
ORTHOSTATIC B/P LAYING 135/73 SITTING 134/75 STANDING 142/80
[2018-08-23 11:18] VITALS: BP 142/66
--- NOTE | 2018-08-23 14:41 | NUR ---
AGREE WITH TECHNICAL COMMUNICATION TEACHER ASSESSMENT
--- NOTE | 2018-08-23 16:30 | NUR ---
DISCHARGE INSTRUCTIONS REVIEWED WITH PT AND VERBALIZED UNDERSTANDING WITH NO QUESTIONS. SL REMOVED WITH TIP INTACT AND NO PROBLEMS. LEFT FLOOR VIA W/C WITH PERSONAL BELONGINGS AND LEFT FACILITY VIA PRIVATE VEHICLE WITH HIS .
--- NOTE | 2018-08-24 08:19 | MORECARE ---
CASE MANAGEMENT DISCHARGE SUMMARY PATIENT: DANILO WU UNIT: [id number] ADM DATE: 08/22/18 AGE: 67 : 54 SEX: M ROOM/BED: D.2139 AUTHOR: SHERYL CHAMPION PHYSICIAN: REFERRING PHYSICIAN: HERNÁN RASMUSSEN MD DATE OF SERVICE: 08/24/18 Discharge Plan Patient Name: [facility]ANILO WU [facility] [facility] 1950 Planned Disposition: Home Anticipated Discharge Date: 08/23/18 Discharge Date: 08/23/2018 Expected LOS: 1 Initial Reviewer: [email or web address] Initial Review Date: 08/24/2018 Generated: 08/24/18 9:19 am Patient Name: DANILO WU Page 12810 at 0819 All edits/amendments must be made on the electronic document DICTATION DATE: 08/24/18817 HYDRO PNEUMATIC TESTER: DM 08/24/18817 RPT#: [id number] DC DATE:08/23/18 STATUS: DIS IN [facility] [address] [place] [address] END OF REPORT
--- NOTE | 2018-08-24 14:57 | CN ---
PATIENT NAME:DNAILO WU MEDICAL RECORD: [id number] : 54 LOCATION:D. D.2139 ADMIT DATE: 08/22/18 ACCOUNT: [id number] CONSULTING PHYSICIAN: LEATHA KHAN MD REFERRING PHYSICIAN: HERNÁN RASMUSSEN MD DATE OF CONSULTATION: 08/22/2018 CARDIOLOGY CONSULT DIAGNOSES: 1. Dizziness. 2. Coronary artery disease. 3. Hypertension. 4. Smoking history. 5. COPD. HISTORY: This is a gentleman who presents with dizziness in a worsening fashion. It has been going on for greater than 6 months. His 6 weeks ago. Since then, his workload has increased. The dizziness has become more of a lifestyle-limiting thing. Today, he had significant dizziness while trying to feed the animals. They brought him into the hospital. He has had no chest pain, chest discomfort, or cardiac symptomatology. His last cardiac intervention was in May of 2017. His EKG is normal. PHYSICAL EXAMINATION: GENERAL APPEARANCE: Well-nourished, well-developed, appears stated age. Level of distress, comfortable. PSYCHIATRIC: Mental status, alert, normal affect. Orientation, oriented to time, place and person. EYES: Lids and conjunctiva, noninjected. No discharge, no pallor. ENT: Lips, teeth, gums, normal dentition. Oropharynx, no cyanosis, no pallor. NECK: Carotid arteries, bilateral normal upstroke, no bruits, no thrills. JUGULAR VEINS: No jugular venous pressure or distention. CERVICAL LYMPH NODES: Nontender, nonenlarged. THYROID: Not enlarged. Nontender. No nodules. LUNGS: Respiratory effort, unlabored. CHEST: Normal curvature. No thoracic deformity. No chest wall tenderness. Percussion, resonant. Auscultation, clear. No wheezes, no rales, no rhonchi. CARDIOVASCULAR: Precordial exam, nondisplaced. No heaves or pericardial thrills. Rate and rhythm, regular. Heart sounds, normal S1, normal S2. No S3, no gallop, no rub. Systolic murmur, not heard. Diastolic murmur, not heard. EXTREMITIES: No cyanosis, no edema. Peripheral pulses, full and equal in all extremities, except as noted. No bruits appreciated. ABDOMEN: Soft, nondistended. Normal aorta. No bruit. Nontender. No masses. Liver, nontender, no hepatomegaly. Spleen, nontender, no splenomegaly. MUSCULOSKELETAL: No joint tenderness. No joint swelling. No erythema. NEUROLOGICAL: Normal gait, normal strength, normal tone. SKIN: Warm and dry. OVERALL IMPRESSION: Dizziness. At this time, we will get a CTA to rule out carotid disease. I would stop his Benicar and see if his dizziness resolves off of the Benicar. Otherwise, cardiac is stable. No other cardiac workup needs to be ascertained. TRANSINT:[id number] Voice Confirmation ID: [id number] DOCUMENT ID: [id number] CONSULT REPORT [id number] DANILO WU, LEATHA RDZ at 1457 CC: [id number] DICTATION DATE: 08/22/18 1150 NUCLEAR MEDICAL TECH: 08/22/18 1301 DIS IN 08/23/18 [facility] [address] [place] [address]
== END 2018-08-23 17:10 | disposition home or self-care (01) ==
LOC: D.ER 10:56 → D.EDHOLD 13:58 → OBSVTIME 13:59 → D.M2 14:07
PROVIDERS: Family Medicine; ADMIT Internal Medicine Nephrology; ATTEND Internal Medicine Nephrology
DX: R55 Syncope and collapse (principal); R42 Dizziness and giddiness; I25.10 Atherosclerotic heart disease of native coronary artery without angina pectoris; I10 Essential (primary) hypertension; Z87.891 Personal history of nicotine dependence; J44.9 Chronic obstructive pulmonary disease, unspecified; E78.5 Hyperlipidemia, unspecified; N17.9 Acute kidney failure, unspecified; E83.42 Hypomagnesemia